=== PATIENT | female | born 1960 | race African-American/Black ===

== ENCOUNTER 2021-10-01 13:22 | Outpatient (CLI) | payer BC | END 2021-10-01 13:23 | disposition home or self-care (01) | LOC: CSHMAMMO 13:22 | PROVIDERS: ATTEND Specialist | DX: Z12.31 Encounter for screening mammogram for malignant neoplasm of breast (principal) | CPT/HCPCS: 77067 ==

== ENCOUNTER 2023-01-13 12:01 | Outpatient (CLI) | payer BC | END 2023-01-13 12:02 | disposition home or self-care (01) | LOC: CSHMAMMO 12:01 | PROVIDERS: ATTEND Specialist | DX: Z12.31 Encounter for screening mammogram for malignant neoplasm of breast (principal) | CPT/HCPCS: 77063; 77067 ==

== ENCOUNTER 2025-05-10 11:28 | Outpatient (CLI) | payer BC | END 2025-05-10 11:29 | disposition home or self-care (01) | LOC: CSHMAMMO 11:28 | PROVIDERS: ATTEND Specialist | DX: Z12.31 Encounter for screening mammogram for malignant neoplasm of breast (principal) | CPT/HCPCS: 77063; 77067 ==